=== PATIENT | female | born 1985 | race Caucasian/White ===

== ENCOUNTER → 2016-08-05 | Outpatient (CLI) | payer SELFPAY ==
[2016-08-05 11:34] LABS: CH 27.1; CHCM 33.1; HCT 37.4 % (34.0-46.0); HDW 2.94; HGB 12.4 gm/dL (11.4-16.0); MCH 27.3 pg (25.0-35.0); MCHC 33.3 g/dL (31.0-37.0); MCV 82.1 fL (80.0-100.0); Mean Platelet Volume 6.8; RBC 4.55 m/uL (3.80-5.40); RDW 13.9 % (11.5-15.5)
[2016-08-05 11:38] LABS: ALT 24 U/L (9-52); AST 15 U/L (14-36); Uric Acid 5.3 mg/dL (3.7-7.4)
[2016-08-05 12:07] LABS: Hepatitis B Surface Ag Index 0.05
[2016-08-05 13:12] LABS: Hemoglobin A1C 5.4 % (4.2-6.1)
[2016-08-06 07:46] LABS: HIV-1/HIV-2 Ab Screen NONREAC (NON REAC)
== END | disposition home or self-care (01) ==
LOC: LABWHC1 09:41
PROVIDERS: ATTEND Obstetrics & Gynecology
DX: O99.211 Obesity complicating pregnancy, first trimester (principal); Z3A.11 11 weeks gestation of pregnancy; Z86.32 Personal history of gestational diabetes
CPT/HCPCS: 36415; 81050; 82575; 82950; 83036; 84156; 84450; 84460; 84550; 85027; 86762; 86780; 86850; 86900; 86901; 87086; 87340; 87389

== ENCOUNTER → 2016-08-29 | Outpatient (CLI) | payer OTHER ==
[2016-08-29 12:38] LABS: Glucose 3 Hour, Gest 60 mg/dL
== END | disposition home or self-care (01) ==
LOC: LABWHC1 07:34
PROVIDERS: ATTEND Obstetrics & Gynecology
DX: O99.810 Abnormal glucose complicating pregnancy (principal)
CPT/HCPCS: 36415; 82951; 82952

== ENCOUNTER 2016-09-26 18:40 | Inpatient (IN) | payer OTHER ==
[2016-09-26 20:19] LABS: Basophils % (A) 0 %; CHCM 33.7; Eosinophils # (A) 0.1 k/uL (0-0.7); Eosinophils % (A) 1 %; HCT 34.7 % (34.0-46.0); HGB 11.7 gm/dL (11.4-16.0); Luc # (Auto) 0.13; Luc % (Auto) 2; Lymphocytes # (A) 1.8 k/uL (1.0-4.8); Lymphocytes % (A) 22 %; MCH 27.2 pg (25.0-35.0); MCHC 33.7 g/dL (31.0-37.0); MCV 80.7 fL (80.0-100.0); Mean Platelet Volume 6.7; Monocytes # (A) 0.3 k/uL (0-1.0); Monocytes % (A) 4 %; Neutrophils # (A) 5.8 k/uL (1.3-7.7); Neutrophils % (A) 72 %; RBC 4.31 m/uL (3.80-5.40); RDW 14.7 % (11.5-15.5); WBC 8.2 k/uL (3.8-10.6); WBC (Perox) 8.78
[2016-09-26 20:25] LABS: Appearance,Urine Clear (Clear); Bilirubin,Urine Negative (Negative); Glucose,Urine (UA) Negative (Negative); Ketones,Urine 1+ (Negative); Leukocyte Esterase,Urine Negative (Negative); Mucus,Urine Rare /hpf; Nitrite,Urine Negative (Negative); PH, Urine 6.5 (5.0-8.0); Particle Count 2709; Protein,Urine 2+ (Negative); RBC,Urine 5 /hpf (0-5); Specific Gravity,Urine 1.014 (1.001-1.035); Squamous Epithelial Cell,Urine 2 /hpf (0-4); UA Billing (MACRO vs. MICRO) MICRO; Urobilinogen,Urine <2.0 mg/dL (<2.0); WBC,Urine 3 /hpf (0-5)
--- NOTE | 2016-09-26 21:00 | US ---
EXAMINATION TYPE: US OB >= 14 wk fetus DATE OF EXAM: 09/26/2016 COMPARISON: None CLINICAL HISTORY: rupture of membranesLeaking fluid since last night TECHNIQUE: Transabdominal (TA) GESTATIONAL AGE / DATING Physician Established: (19 weeks/2 days) EDC: 02/18/17 Dates by LMP: unknown Dates by First Scan: no prior scan Dates by Current Scan: (19 weeks/2 days) EDC: 02/18/17 SURVEY IUP: Single PLACENTA: Posterior PREVIA: Low Lying MONIKA: 5.5 cm Oligohydramnios CERVICAL LENGTH (transabdominal: norm > 3.0cm): 2.7 cm BIOMETRY PRESENTATION: Breech LIE: Transverse with head maternal RT BPD: 4.2 cm 18 weeks / 5 days HC: 16.9 cm 19 weeks / 4 days AC: 15.2 cm 20 weeks / 3 days FL: 3.0 cm 19 weeks / 2 days ESTIMATED WEIGHT IN GRAMS: 313.9 grams ESTIMATED WEIGHT IN LBS/OZS: 0 lbs. 11 oz. WEIGHT PERCENTAGE BASED ON ESTABLISHED DATES: 75.7% HC/AC: 1.12 Normal FL/AC: 19.80 Normal HEART RATE: 161 bpm RHYTHM: Normal MATERNAL WALL MEASUREMENT: 4.8 cm from skin to anterior uterine wall (if exam limited due to body hab itus). Low amniotic fluid may limit sensitivity. IMPRESSION: Single viable IUP 19wks/2days with MARC of 02/18/17. Oligohydramnios. Low lying placenta. Limited feta l survey.
[2016-09-26 21:01] VITALS: BMI 43.0
[2016-09-26 21:38] LABS: Glucose,Whole Blood 82 mg/dL (75-99)
--- NOTE | 2016-09-26 21:44 | P.HPOB ---
History of Present Illness H&P Date: 09/26/16 Chief Complaint: 19+ weeks, premature spontaneous rupture of membranes The patient is a 31-year-old 2 para 1001 admitted at 19+ weeks by good dating parameters. She is admitted with documented spontaneous rupture of membranes which she believes she first noted late last night just prior to midnight. Her has been essentially uncomplicated to this point though she has been diagnosed with gestational diabetes. She has been following her blood sugars and reportedly relatively normal. She has a history of a previous section for breech presentation in her first which time she was also diabetic. She denies any risk factors for rupture of membranes and is not at risk for any infections to include STDs. She did have intercourse last night prior to rupture of membranes but has had no unusual activity of any kind. She reports only feeling fluttering movement at this time which is no different from the last several days. She denies any concerns for contractions or pain at this time. There is no bleeding. Bedside ultrasound demonstrated the fetus to be in a transverse presentation with approximately 5 cm total of fluid. The cervix appears to be of normal length transabdominally. There is no evidence of retroplacental clot or concerns for abruption though the placenta is apparently low-lying. Obstetrical history: 2 para 1001 with 1 term delivery for breech presentation. Current statistics are listed above and her is not available to me at the moment for labs. Gynecologic history: Unremarkable with no history of any infections to include STDs. Review of Systems Review of systems is confined to history of present illness. Past Medical History Past Medical History: GERD/Reflux Additional Past Medical History / Comment(s): gestational diabetes, obesity History of Any Multi-Drug Resistant Organisms: None Reported Past Surgical History: Section Past Anesthesia/Blood Transfusion Reactions: Motion Sickness Additional Past Anesthesia/Blood Transfusion Reaction / Comment(s): has never received anesthesia Past Psychological History: No Psychological Hx Reported Smoking Status: Never smoker Past Alcohol Use History: None Reported Past Drug Use History: None Reported - Past Family History Mother Family Medical History: No Reported History Medications and Allergies Home Medications Medication Instructions Recorded Confirmed Type Pnv with Ca,No.72/Iron/FA 1 each PO DAILY 06/20/14 09/26/16 History [ Plus Multivitamin Tab] Allergies Allergy/AdvReac Type Severity Reaction Status Date / Time No Known Allergies Allergy Verified 09/26/16 19:05 Exam - Vital Signs Vital signs: Vital Signs Temp Pulse Resp BP Pulse Ox 09/26/16 18:46 97.7 F 89 18 133/79 99 Intake and Output 09/26/16 09/26/16 09/26/16 06:59 14:59 22:59 Other: Weight 124.738 kg Patient Weight 09/27/16 06:59 Weight 124.738 kg In general, this is a moderately obese white female in no acute distress. Her heart has a regular rhythm and rate without murmur. Her lungs are clear to auscultation bilaterally in all napoles. Her abdomen is moderately obese, nondistended, has normal active bowel sounds, is soft, nontender, and without any palpable masses aside from uterine fundus which is at approximately the umbilicus. Her extremities are without any cyanosis, clubbing, or edema and are nontender to palpation bilaterally. Digital cervical examination is deferred. Spontaneous rupture of membranes of clear fluid is confirmed. Results Result Diagrams: 09/26/16 20:05 Abnormal Lab Results - Last 24 Hours (Table) 09/26/16 Range/Units 19:45 Urine Protein 2+ H (Negative) Urine Ketones 1+ H (Negative) Urine Blood Moderate H (Negative) Urine Mucus Rare H (None) /hpf Assessment and Plan (1) premature rupture of membranes (PPROM) delivered, current hospitalization Status: Acute (2) 19 weeks gestation of Status: Acute (3) Gestational diabetes Status: Acute Plan: The patient is admitted for observation at this time. I spent a long time discussing the serious nature of this condition and the strong possibility of a poor outcome for the infant. I did discuss that the most likely scenario is that labor may ensue and that the fetus is currently nonviable based upon gestational age. Should any evidence of labor or infection become apparent, the patient will require delivery. I did discuss that there is a place for conservative management if labor does not begin and no evidence of infection arises. This will require essential bed rest for the remainder of the . She will be observed here in the hospital for the next 72-96 hours. Should she remain stable, she may be discharged to be followed as an outpatient until she approaches viability. It is quite likely that a maternal- medicine consultation will be obtained in the outpatient setting in order to discuss all of the implications further and to make a plan as regards aggressive treatment should viability be approached. Those would include the possibility of steroids and prophylactic antibiotics which are not indicated at this time. While in the hospital, I will allow her a regular diet though she is a gestational diabetic and will require blood sugar monitoring. Additionally sequential compression devices have been ordered for her legs as she is to be kept at bedrest with bathroom privileges. She and her understood the gravity of the situation and I believe and agree with the plan as it has been outlined currently.
[2016-09-26] MEDS ORDERED: ACETAMINOPHEN TAB 325 MG TAB PO PRN (22:21)
[2016-09-27 00:31] LABS: Glucose,Whole Blood 116 mg/dL (75-99)
[2016-09-27 07:13] LABS: Basophils % (A) 0 %; CH 26.7; Eosinophils # (A) 0.1 k/uL (0-0.7); Eosinophils % (A) 1 %; HCT 33.6 % (34.0-46.0); HDW 3.08; HGB 10.8 gm/dL (11.4-16.0); Luc % (Auto) 1; Lymphocytes # (A) 1.6 k/uL (1.0-4.8); Lymphocytes % (A) 23 %; MCH 26.2 pg (25.0-35.0); MCHC 32.2 g/dL (31.0-37.0); MCV 81.6 fL (80.0-100.0); Mean Platelet Volume 6.9; Monocytes # (A) 0.3 k/uL (0-1.0); Monocytes % (A) 4 %; Neutrophils % (A) 71 %; RBC 4.12 m/uL (3.80-5.40); WBC (Perox) 7.46
[2016-09-27 07:47] LABS: Glucose,Whole Blood 89 mg/dL (75-99)
--- NOTE | 2016-09-27 09:03 | P.PN ---
Subjective Principal diagnosis: 19+ weeks, premature spontaneous rupture of membranes The patient denies any perceived leaking overnight and denies cramping, spotting , or any other signs of labor as well. There is no evidence of fever. She is feeling movement and heart tones are still in the normal range. She is tolerating regular diet. Objective - Vital Signs Vital signs: Vital Signs Temp 97.7 F 09/26/16 18:46 Pulse 89 09/26/16 18:46 Resp 18 09/26/16 18:46 BP 133/79 09/26/16 18:46 Pulse Ox 99 09/26/16 18:46 Intake & Output 09/26/16 09/27/16 09/27/16 18:59 06:59 18:59 Output Total 600 Balance -600 Weight 124.738 kg 124.738 kg Output: Urine 600 Other: # Voids 2 - Exam In general, this is a mild to moderately obese white female in no acute distress. Her abdomen is nondistended, is soft, nontender, and without any palpable masses aside from uterine fundus palpable just around the umbilicus. The fundus is soft and nontender. Her extremities are without any cyanosis, clubbing, or edema and are nontender to palpation bilaterally. - Labs CBC & Chem 7: 09/27/16 06:23 Labs: Abnormal Lab Results - Last 24 Hours (Table) 09/26/16 09/27/16 09/27/16 Range/Units 19:45 00:21 06:23 Hgb 10.8 L (11.4-16.0) gm/dL Hct 33.6 L (34.0-46.0) % POC Glucose (mg/dL) 116 H (75-99) mg/dL Urine Protein 2+ H (Negative) Urine Ketones 1+ H (Negative) Urine Blood Moderate H (Negative) Urine Mucus Rare H (None) /hpf Assessment and Plan (1) premature rupture of membranes (PPROM) delivered, current hospitalization Status: Acute (2) 19 weeks gestation of Status: Acute (3) Gestational diabetes Status: Acute Plan: At this time, there is no signs or symptoms of either infection or labor. Her white blood cell count is stable and actually lower than on admission. She remains afebrile. Her blood sugars are within the normal range to this point. She will continue to undergo observation for a total of 3-4 days to assess stability from all of these standpoints. Should she remain stable, she will likely be discharged to manage as an outpatient as outlined in the history and physical. The case was again rediscussed with the patient and her was present during the discussion as well. Both appeared to have a understanding of the scenario and concerns.
[2016-09-27 10:12] LABS: Glucose,Whole Blood 152 mg/dL (75-99)
[2016-09-27 11:57] LABS: Glucose,Whole Blood 80 mg/dL (75-99)
[2016-09-27 14:16] LABS: Glucose,Whole Blood 111 mg/dL (75-99)
[2016-09-27 17:37] LABS: Glucose,Whole Blood 86 mg/dL (75-99)
[2016-09-27 17:43] VITALS: BP 135/63; PULSE 83; RESP 16; TEMP 98.3
[2016-09-27 19:33] LABS: Glucose,Whole Blood 123 mg/dL (75-99)
[2016-09-27 23:12] LABS: Glucose,Whole Blood 80 mg/dL (75-99)
[2016-09-28 07:29] LABS: Glucose,Whole Blood 83 mg/dL (75-99)
[2016-09-28 09:35] LABS: Glucose,Whole Blood 100 mg/dL (75-99)
--- NOTE | 2016-09-28 09:52 | P.DS ---
Providers Date of admission: 09/26/16 19:48 Expected date of discharge: 09/28/16 Attending physician: Bayron Johns Primary care physician: Dhara Harrisonise - Discharge Diagnosis(es) (1) premature rupture of membranes (PPROM) delivered, current hospitalization Current Visit: Yes Status: Acute (2) 19 weeks gestation of Current Visit: Yes Status: Acute (3) Gestational diabetes Current Visit: Yes Status: Acute Hospital Course: The patient is a 31-year-old 2 para 1001 admitted at 19+ weeks by good dating parameters. She is admitted with documented spontaneous rupture of membranes of clear fluid which occurred approximately 12-18 hours prior to presentation at the hospital. Her has been essentially uncomplicated though she has been diagnosed with gestational diabetes. Her blood sugars have reportedly been relatively normal. She also carries a history of a previous section for breech presentation. Since the time of rupture of membranes, the patient denies any cramping whatsoever and has had no bleeding though does continue to have occasional leaking of fluid. She denies it for the last 12 hours. She has remained afebrile and her labs have remained stable with normal white count throughout. Blood sugars have remained essentially normal during her hospital stay. Her abdomen is soft and nontender. There continues to be activity with normal heart tones. She is in favor of conservative management at this point and the long-term plan as well as goals and possibility of success have been thoroughly discussed with both she and her . She was deemed stable for discharge on hospital day #3 and was discharged home to follow-up in the office tomorrow as previously scheduled for both ultrasound which was intended to be the anatomy scan and then further disposition. She will likely be sent for maternal medicine consultation in order to outline more detailed plans should she approach and reach viability. Discharge instructions included primarily remaining at essential bed rest with bathroom privileges. She was to call for any significantly increased fever, cramping or contractions, pain, or anything else that concerned her. She is instructed to have nothing in the vagina for the remainder of the to include intercourse. She understood all of her instructions and agrees to follow up as noted above. Discharge medications included only continue vitamins at this time. Procedures: #1. Obstetrical ultrasound #2. Observation Patient Condition at Discharge: Stable Plan - Discharge Summary Discharge Medication List Pnv with Ca,No.72/Iron/FA [ Plus Multivitamin Tab] 1 each PO DAILY 06/20 [History] Follow up Appointment(s)/Referral(s): Dhara Ferraro MD [Primary Care Provider] - 09/29/16 Discharge Disposition: HOME SELF-CARE
== END 2016-09-28 10:25 | disposition home or self-care (01) | DRG 775 ==
LOC: FBPOP 18:40 → 4FBP 19:48
PROVIDERS: ADMIT Obstetrics & Gynecology; ATTEND Obstetrics & Gynecology
DX: O42.912 Preterm premature rupture of membranes, unspecified as to length of time between rupture and onset of labor, second trimester (principal); O99.62 Diseases of the digestive system complicating childbirth; Z68.41 Body mass index [BMI] 40.0-44.9, adult; E66.9 Obesity, unspecified; O99.212 Obesity complicating pregnancy, second trimester; O24.410 Gestational diabetes mellitus in pregnancy, diet controlled; O34.211 Maternal care for low transverse scar from previous cesarean delivery; K21.9 Gastro-esophageal reflux disease without esophagitis; Z3A.19 19 weeks gestation of pregnancy; Z79.899 Other long term (current) drug therapy
CPT/HCPCS: 76805; 81001; 84112; 85025; 99213

== ENCOUNTER → 2016-09-29 | Outpatient (CLI) | payer OTHER ==
[2016-09-29 16:02] LABS: CH 26.8; CHCM 33.8; HCT 36.5 % (34.0-46.0); HDW 3.34; HGB 12.3 gm/dL (11.4-16.0); MCH 26.9 pg (25.0-35.0); MCHC 33.7 g/dL (31.0-37.0); MCV 79.9 fL (80.0-100.0); Mean Platelet Volume 6.6; RBC 4.57 m/uL (3.80-5.40); RDW 14.7 % (11.5-15.5); WBC 10.7 k/uL (3.8-10.6)
== END | disposition home or self-care (01) ==
LOC: LABWHC1 15:35
PROVIDERS: ATTEND Obstetrics & Gynecology
DX: O42.019 Preterm premature rupture of membranes, onset of labor within 24 hours of rupture, unspecified trimester (principal); Z3A.00 Weeks of gestation of pregnancy not specified
CPT/HCPCS: 36415; 85027

== ENCOUNTER → 2016-10-06 | Outpatient (CLI) | payer OTHER ==
[2016-10-06 15:19] LABS: CH 26.7; CHCM 34.1; HCT 34.4 % (34.0-46.0); HDW 3.34; HGB 11.9 gm/dL (11.4-16.0); MCH 27.3 pg (25.0-35.0); MCHC 34.7 g/dL (31.0-37.0); MCV 78.9 fL (80.0-100.0); Mean Platelet Volume 6.8; RBC 4.37 m/uL (3.80-5.40); RDW 14.6 % (11.5-15.5); WBC 7.4 k/uL (3.8-10.6)
== END | disposition home or self-care (01) ==
LOC: LABWHC1 14:50
PROVIDERS: ATTEND Obstetrics & Gynecology
DX: O42.912 Preterm premature rupture of membranes, unspecified as to length of time between rupture and onset of labor, second trimester (principal); Z3A.00 Weeks of gestation of pregnancy not specified
CPT/HCPCS: 36415; 85027

== ENCOUNTER 2016-10-07 09:26 | Observation (INO) | payer OTHER ==
[2016-10-07] MEDS: LACTATED RINGERS 1,000 ML IV SCH ×2 (10:05→18:35)
[2016-10-07 10:14] VITALS: BMI 39.9
[2016-10-07 10:24] LABS: Glucose,Whole Blood 80 mg/dL (75-99)
[2016-10-07 10:43] LABS: Basophils % (A) 0 %; CHCM 34.3; Eosinophils # (A) 0.1 k/uL (0-0.7); Eosinophils % (A) 1 %; HCT 33.3 % (34.0-46.0); HDW 3.34; HGB 11.4 gm/dL (11.4-16.0); Luc # (Auto) 0.14; Luc % (Auto) 2; Lymphocytes # (A) 1.4 k/uL (1.0-4.8); Lymphocytes % (A) 17 %; MCHC 34.2 g/dL (31.0-37.0); Mean Platelet Volume 6.8; Monocytes # (A) 0.3 k/uL (0-1.0); Monocytes % (A) 3 %; Neutrophils # (A) 6.3 k/uL (1.3-7.7); Neutrophils % (A) 77 %; RBC 4.22 m/uL (3.80-5.40); RDW 14.8 % (11.5-15.5); WBC 8.2 k/uL (3.8-10.6)
[2016-10-07 12:13] LABS: Glucose,Whole Blood 80 mg/dL (75-99)
--- NOTE | 2016-10-07 18:05 | P.HPOB ---
History of Present Illness H&P Date: 10/07/16 Chief Complaint: Vaginal bleeding This is a 31-year-old 2 para 1001 woman at 20-6/7 weeks' gestation with an estimated due date of 02/18/2017 who presents with vaginal bleeding. The has been complicated by spontaneous rupture of membranes at 19 weeks gestation. She was hospitalized for a short period of time immediately following rupture and has more recently been home on modified bed rest with close outpatient follow-up. She reports onset of bright red vaginal bleeding at approximately 8:30 this morning. This has continued intermittently until presentation later in the morning. She denies abdominal pain and is feeling movement. She reports no leakage of fluids in the previous 24 hours but prior to that she was actively leaking clear fluid. Ultrasound on 10/06/2016 showed an amniotic fluid index of approximately 4 cm and in the breech presentation. She has had maternal medicine consultation at [facility] regarding the situation. She also has gestational diabetes and mild chronic hypertension. She has a history of a previous low transverse section in her previous . Currently she is complaining of feeling very hungry. Her last meal was the before bed yesterday. Her admission blood sugar was 88. She thinks she may be having some mild lower abdominal cramping. She has had a couple of "gushes" of fluid and blood over the last 4 hours. She denies feeling lightheaded or dizzy. She denies shortness of breath or chest pain. Obstetric history significant for primary low transverse section in 2015 for breech presentation at 38 weeks. Should a history of gestational diabetes and -induced hypertension. Review of Systems All systems: negative Past Medical History Past Medical History: GERD/Reflux, Hypertension Additional Past Medical History / Comment(s): gestational diabetes, obesity History of Any Multi-Drug Resistant Organisms: None Reported Past Surgical History: Section Past Anesthesia/Blood Transfusion Reactions: Motion Sickness Additional Past Anesthesia/Blood Transfusion Reaction / Comment(s): has never received anesthesia Past Psychological History: No Psychological Hx Reported Smoking Status: Never smoker Past Alcohol Use History: None Reported Past Drug Use History: None Reported - Past Family History Mother Family Medical History: No Reported History Medications and Allergies Home Medications Medication Instructions Recorded Confirmed Type Pnv with Ca,No.72/Iron/FA 1 each PO DAILY 06/20/14 10/07/16 History [ Plus Multivitamin Tab] metFORMIN HCL [Metformin HCl] 500 mg PO BID 10/07/16 10/07/16 History Allergies Allergy/AdvReac Type Severity Reaction Status Date / Time No Known Allergies Allergy Verified 10/07/16 09:44 Exam - Vital Signs Vital signs: Vital Signs Temp Pulse Resp BP 10/07/16 10:04 97.8 F 96 16 143/95 10/07/16 09:58 97.8 F 96 16 143/95 Intake and Output 10/07/16 10/07/16 10/07/16 06:59 14:59 22:59 Other: Weight 115.666 kg Patient Weight 10/08/16 06:59 Weight 115.666 kg This is a somewhat tearful, obese female in no acute distress. HEENT exam is unremarkable. Her breathing is unlabored. Her heart is a regular rate and rhythm. The abdomen is obese, soft and nontender. The fundus of the uterus is below the level of the umbilicus and is nontender to palpation. She has 1+ bilateral lower extremity edema. On pelvic examination there is a scant amount of bright red bleeding noted. The cervix is approximately 1 cm long and fingertip dilated. There is a bulging low uterine segment with no presenting part. heart tones are audible at approximately 150 bpm. Results Result Diagrams: 10/07/16 10:25 Abnormal Lab Results - Last 24 Hours (Table) 10/07/16 Range/Units 10:25 Hct 33.3 L (34.0-46.0) % MCV 79.0 L (80.0-100.0) fL Assessment and Plan (1) 20 weeks gestation of Status: Acute (2) premature rupture of membranes Status: Acute (3) Vaginal bleeding Status: Acute (4) Threatened Status: Acute (5) Gestational diabetes Status: Acute (6) Chronic hypertension during , antepartum Status: Acute (7) History of Status: Acute Plan: This is a 31-year-old 2 para 1001 woman at 20-6/7 weeks' gestation with history of previous eye of viable premature rupture of membranes at 19 weeks gestation. She presents with vaginal bleeding. She is hemodynamically stable at this time. Situation concerning for placental abruption and or spontaneous labor. The situation has been discussed in detail and at length with the patient, the father of the baby and family members. The is previable at this gestational age and remote from viability. Transfer to a tertiary care facility is not warranted at this time for resuscitation purposes. Should her bleeding become more significant or she becomes hemodynamically unstable steps may be necessary to the speed the delivery process such as administration of vaginal Cytotec or IV Pitocin. At this time she will be managed conservatively and monitored closely. They understand the precarious nature of the situation. All questions are answered. Case is reviewed with Dr. Cheikh Haji from [facility], high risk group. He agrees with the above plan, specifically to proceed with induction of labor using Cytotec for a vaginal delivery should bleeding increase. Time with Patient: Greater than 30
[2016-10-07 19:26] LABS: CHCM 33.7; HDW 3.13; HGB 10.6 gm/dL (11.4-16.0); MCH 26.6 pg (25.0-35.0); MCV 80.5 fL (80.0-100.0); RBC 3.98 m/uL (3.80-5.40); WBC 7.6 k/uL (3.8-10.6)
[2016-10-07] MEDS: ACETAMINOPHEN TAB 325 MG TAB PO PRN (20:01)
[2016-10-07 20:15] LABS: Glucose,Whole Blood 134 mg/dL (75-99)
[2016-10-08] MEDS: LACTATED RINGERS 1,000 ML IV SCH (02:15)
[2016-10-08 02:30] LABS: Basophils % (A) 0 %; CH 27.1; CHCM 33.2; Eosinophils # (A) 0.1 k/uL (0-0.7); Eosinophils % (A) 1 %; HCT 34.5 % (34.0-46.0); HDW 3.16; HGB 11.4 gm/dL (11.4-16.0); Luc # (Auto) 0.11; Luc % (Auto) 2; Lymphocytes # (A) 2.1 k/uL (1.0-4.8); Lymphocytes % (A) 29 %; MCH 27.2 pg (25.0-35.0); MCHC 33.2 g/dL (31.0-37.0); Mean Platelet Volume 6.8; Monocytes # (A) 0.2 k/uL (0-1.0); Monocytes % (A) 3 %; Neutrophils # (A) 4.6 k/uL (1.3-7.7); Neutrophils % (A) 65 %; RBC 4.21 m/uL (3.80-5.40); WBC (Perox) 6.93
[2016-10-08] MEDS: ACETAMINOPHEN TAB 325 MG TAB PO PRN ×2 (04:10→20:26)
[2016-10-08 04:22] LABS: Glucose,Whole Blood 84 mg/dL (75-99)
--- NOTE | 2016-10-08 08:38 | P.PNOBGAP ---
Subjective - Subjective Principal diagnosis: Vaginal bleeding and previable premature rupture of membranes Interval history: Significantly decreased amount of bleeding overnight. Minimal abdominal cramping. Antepartum ROS: Reports vaginal bleeding, Reports movement normal, Denies new complaints, Denies loss of fluid Objective - Vital Signs Vital Signs: Vital Signs Temp Pulse Resp BP Pulse Ox 10/08/16 04:00 97.8 F 77 16 141/80 10/07/16 20:00 96.6 F L 81 15 136/81 97 10/07/16 16:00 97.2 F L 88 14 156/81 10/07/16 10:04 97.8 F 96 16 143/95 10/07/16 09:58 97.8 F 96 16 143/95 Intake and Output 10/07/16 10/08/16 10/08/16 22:59 06:59 14:59 Intake Total 1000 1000 Output Total 800 Balance 1000 200 Intake: IV 1000 1000 Lactated Ringers 1,000 ml 1000 1000 @ 125 mls/hr IV .Q8H LORIN Rx#:[id number] Output: Urine 800 Other: # Voids 1 - Exam FHR: auscultation normal Abdomen: Present: normal appearance, soft. Absent: tenderness Uterus: Present: normal. Absent: tenderness - Labs Labs: Abnormal Labs 10/07/16 10/07/16 10/07/16 10:25 19:00 20:06 Hgb 10.6 L Hct 33.3 L 32.0 L MCV 79.0 L POC Glucose (mg/dL) 134 H Assessment and Plan (1) 20 weeks gestation of Current Visit: Yes Status: Acute Code(s): Z3A.20 - 20 WEEKS GESTATION OF SNOMED Code(s): 97872327 (2) premature rupture of membranes Current Visit: Yes Status: Acute Code(s): O42.919 - PRETRM GIACOMO ROM, UNSP TIME BETW RUPT AND ONST LABR, UNSP TRI SNOMED Code(s): 442268487 (3) Vaginal bleeding Narrative/Plan: 31-year-old 2 para 1001 woman at 21 weeks gestation. Decreased amount of vaginal bleeding overnight. Normal white blood cell count and afebrile. Positive movement. Reviewed again the situation with the patient and her and all questions were answered. At this time they may be considering medical interruption of . We would consult the maternal medicine unit at [facility] for discussion of this and possible arrangements for procedure should they choose to proceed. At this time she remain inpatient for at least another 24 hours to observe for vaginal bleeding. Current Visit: Yes Status: Acute Code(s): N93.9 - ABNORMAL UTERINE AND VAGINAL BLEEDING, UNSPECIFIED SNOMED Code(s): 660334802 (4) Threatened Current Visit: Yes Status: Acute Code(s): O20.0 - THREATENED SNOMED Code(s): 00130421 (5) Gestational diabetes Narrative/Plan: Resume regular diet with metformin twice a day. Current Visit: Yes Status: Acute Code(s): O24.419 - GESTATIONAL DIABETES MELLITUS IN , UNSP CONTROL SNOMED Code(s): 57631463 (6) Chronic hypertension during , antepartum Current Visit: Yes Status: Acute Code(s): O10.919 - UNSP PRE-EXISTING HTN COMP , UNSP TRIMESTER SNOMED Code(s): 68273434 (7) History of Current Visit: Yes Status: Acute Code(s): Z98.891 - HISTORY OF UTERINE SCAR FROM PREVIOUS SURGERY SNOMED Code(s): 244479830
[2016-10-08] MEDS: metFORMIN 500 MG TAB PO SCH ×2 (10:50→23:41)
[2016-10-08 11:03] LABS: Basophils % (A) 0 %; CH 26.8; CHCM 32.9; Eosinophils # (A) 0.1 k/uL (0-0.7); Eosinophils % (A) 1 %; HGB 11.1 gm/dL (11.4-16.0); Luc # (Auto) 0.05; Luc % (Auto) 1; Lymphocytes # (A) 1.1 k/uL (1.0-4.8); Lymphocytes % (A) 18 %; MCH 26.8 pg (25.0-35.0); MCHC 32.7 g/dL (31.0-37.0); MCV 81.7 fL (80.0-100.0); Mean Platelet Volume 6.9; Monocytes # (A) 0.1 k/uL (0-1.0); Monocytes % (A) 2 %; Neutrophils # (A) 4.7 k/uL (1.3-7.7); Neutrophils % (A) 78 %; RBC 4.16 m/uL (3.80-5.40); WBC (Perox) 6.89
[2016-10-08 12:04] LABS: Glucose,Whole Blood 76 mg/dL (75-99)
[2016-10-08 15:40] LABS: Glucose,Whole Blood 97 mg/dL (75-99)
[2016-10-08 18:11] LABS: Basophils % (A) 0 %; CH 26.9; CHCM 32.4; Eosinophils # (A) 0.1 k/uL (0-0.7); Eosinophils % (A) 1 %; HCT 34.7 % (34.0-46.0); HDW 3.09; HGB 11.2 gm/dL (11.4-16.0); Hypochromasia Slight; Luc % (Auto) 1; Lymphocytes # (A) 1.8 k/uL (1.0-4.8); Lymphocytes % (A) 23 %; MCHC 32.4 g/dL (31.0-37.0); MCV 83.3 fL (80.0-100.0); Mean Platelet Volume 6.7; Monocytes # (A) 0.2 k/uL (0-1.0); Monocytes % (A) 3 %; Neutrophils # (A) 5.5 k/uL (1.3-7.7); Neutrophils % (A) 71 %; RBC 4.16 m/uL (3.80-5.40); RDW 14.9 % (11.5-15.5); WBC 7.7 k/uL (3.8-10.6); WBC (Perox) 8.02
[2016-10-08 20:16] LABS: Glucose,Whole Blood 90 mg/dL (75-99)
[2016-10-09 02:34] LABS: Basophils % (A) 0 %; CH 26.7; CHCM 32.9; Eosinophils # (A) 0.1 k/uL (0-0.7); Eosinophils % (A) 1 %; HCT 32.6 % (34.0-46.0); HDW 3.16; HGB 10.9 gm/dL (11.4-16.0); Luc % (Auto) 1; Lymphocytes # (A) 1.8 k/uL (1.0-4.8); Lymphocytes % (A) 26 %; MCH 27.4 pg (25.0-35.0); MCHC 33.5 g/dL (31.0-37.0); MCV 81.6 fL (80.0-100.0); Mean Platelet Volume 6.7; Monocytes # (A) 0.3 k/uL (0-1.0); Monocytes % (A) 4 %; Neutrophils # (A) 4.7 k/uL (1.3-7.7); Neutrophils % (A) 67 %; RBC 3.99 m/uL (3.80-5.40); RDW 14.9 % (11.5-15.5); WBC (Perox) 7.22
[2016-10-09] MEDS: metFORMIN 500 MG TAB PO SCH (08:39)
[2016-10-09 08:42] VITALS: BP 136/69; PULSE 65; RESP 16; TEMP 97.5
[2016-10-09 08:44] LABS: Glucose,Whole Blood 85 mg/dL (75-99)
--- NOTE | 2016-10-09 10:34 | P.DS ---
Providers Date of admission: 10/07/16 09:57 Expected date of discharge: 10/09/16 Attending physician: Dhara Ferraro Primary care physician: Stated None - Discharge Diagnosis(es) (1) 20 weeks gestation of Current Visit: Yes Status: Acute (2) premature rupture of membranes Current Visit: Yes Status: Acute (3) Vaginal bleeding Current Visit: Yes Status: Acute (4) Threatened Current Visit: Yes Status: Acute (5) Gestational diabetes Current Visit: Yes Status: Acute (6) Chronic hypertension during , antepartum Current Visit: Yes Status: Acute (7) History of Current Visit: Yes Status: Acute Hospital Course: This is a 31-year-old 2 para 1001 woman who was admitted at 20-6/7 weeks ' gestation with vaginal bleeding. Her obstetrical history is significant for previable premature rupture of membranes at approximately 19 weeks gestation. She had onset of moderate to heavy bright red vaginal bleeding which brought her to the hospital. She was hemodynamically stable however was admitted for observation secondary to concerns for possible placental abruption or impending miscarriage. She has had positive heart tones throughout her stay. Serial CBC were stable. After approximately the first 12 hours of her admission her bleeding essentially stopped. She had very scant bright red bleeding on the pad throughout her hospital stay following this. She was therefore discharged home after approximate 48 hours of monitoring to close follow-up in the outpatient setting. Plan - Discharge Summary New Discharge Prescriptions: No Action Pnv with Ca,No.72/Iron/FA [ Plus Multivitamin Tab] 1 each PO DAILY metFORMIN HCL [Metformin HCl] 500 mg PO BID Discharge Medication List Pnv with Ca,No.72/Iron/FA [ Plus Multivitamin Tab] 1 each PO DAILY 06/20 [History] metFORMIN HCL [Metformin HCl] 500 mg PO BID 10/07/16 [History] Follow up Appointment(s)/Referral(s): Dhara Ferraro MD [STAFF PHYSICIAN] - 10/13/16 Activity/Diet/Wound Care/Special Instructions: Home to limited activities. Nothing in the vagina, no intercourse. Call the office with any concerning signs or symptoms including fever greater than 100.5 , absent movement, severe abdominal pain or cramping, foul vaginal discharge or vaginal bleeding. Return to labor and delivery with any flow of bright red vaginal bleeding, more than one maxi pad in an hour. Discharge Disposition: HOME SELF-CARE
[2016-10-09 11:01] LABS: Glucose,Whole Blood 94 mg/dL (75-99)
== END 2016-10-09 12:05 | disposition home or self-care (01) ==
LOC: FBPOP 09:26 → 4FBP 09:57
PROVIDERS: ADMIT Obstetrics & Gynecology; ATTEND Obstetrics & Gynecology
DX: O20.0 Threatened abortion (principal); Z3A.21 21 weeks gestation of pregnancy; O42.912 Preterm premature rupture of membranes, unspecified as to length of time between rupture and onset of labor, second trimester; O16.2 Unspecified maternal hypertension, second trimester; O34.211 Maternal care for low transverse scar from previous cesarean delivery; O24.415 Gestational diabetes mellitus in pregnancy, controlled by oral hypoglycemic drugs; Z79.84 Long term (current) use of oral hypoglycemic drugs
CPT/HCPCS: 99213; 86900; 86901; 85025 ×3; 85027; 86850; G0378 ×3

== ENCOUNTER → 2016-10-15 | Outpatient (CLI) | payer OTHER ==
[2016-10-15 15:59] LABS: CH 27.2; CHCM 34.4; HCT 33.3 % (34.0-46.0); HDW 3.39; HGB 11.8 gm/dL (11.4-16.0); MCH 28.1 pg (25.0-35.0); MCHC 35.4 g/dL (31.0-37.0); MCV 79.4 fL (80.0-100.0); Mean Platelet Volume 7.5; RBC 4.19 m/uL (3.80-5.40); RDW 15.2 % (11.5-15.5); WBC 9.4 k/uL (3.8-10.6)
== END | disposition home or self-care (01) ==
LOC: LABWHC1 15:22
PROVIDERS: ATTEND Obstetrics & Gynecology
DX: O24.419 Gestational diabetes mellitus in pregnancy, unspecified control (principal); O42.90 Premature rupture of membranes, unspecified as to length of time between rupture and onset of labor, unspecified weeks of gestation; Z3A.00 Weeks of gestation of pregnancy not specified
CPT/HCPCS: 36415; 85027

== ENCOUNTER → 2016-12-01 | Outpatient (CLI) | payer OTHER ==
--- NOTE | 2016-12-01 16:27 | MR ---
EXAMINATION TYPE: MR liver wo/w con DATE OF EXAM: 12/01/2016 COMPARISON: Correlation outside CT report dated 11/29/2016. Measurements for the left liver lesion wer e 12.6 x 9.0 x 12.7 cm. HISTORY: 31-year-old female seen for kidney stone/infection, incidental cyst seen on liver, liver mas s. Technique: Multiplanar, multisequence images of the abdomen were obtained before and after administra tion of 20 mL intravenous MultiHance gadolinium contrast. FINDINGS: Heart is normal size without pericardial effusion. Redemonstrated large multilocular cystic mass within the left hepatic lobe that shows typical high T2 and low T1 signal. This measures 11.7 cm wide by 8.7 cm AP by 14.3 cm craniocaudal, similar given so me differences in measurement technique. Again, this stretches the inferior aspect of the left liver capsule and has mass effect onto the champ cent lesser curvature of the stomach. There are thin internal septations and while there may be a couple 1 cm areas of nodularity along tanya e of the septations, T2 axial image 31 and 35, no discrete enhancement is seen. There appears to be trace perihepatic ascites anteriorly along the left liver lobe. The liver itself is enlarged measuring 24.1 cm craniocaudal. The hepatic veins and portal venous system are patent though there is mass effect with extrinsic comp ression on the left portal vein. Gallbladder, adrenal glands, and pancreas as well as the left kidney appear within normal limits. The re are striated and wedge-shaped areas of nonenhancement within the right kidney which appears asymme trically larger and is heterogeneous in signal on T2-weighted sequence. Perinephric edema is present with apparent mild fluid within the lesser sac. No upper abdominal lymphadenopathy or gross bowel abnormality seen. IMPRESSION: 1. Large multilocular cystic mass measuring 14.3 cm within the left liver lobe. This stretches the in ferior left liver capsule, has mass effect onto the lesser curvature of the stomach, and has extrinsi c partial compression of the left portal vein. Multiple thin internal septations are present with a c ouple 1 cm areas of internal nodularity. Given the appearance along with patient demographics, biliar y cystadenoma is not excluded from the differential. Note that there are no specific imaging features that permit reliable differentiation from biliary cyst adenocarcinomas. 2. Enlarged and edematous right kidney with perinephric edema. There are wedge-shaped/striated areas of hypoenhancement. This could be reactive to obstruction or indicate pyelonephritis. 3. Mild ascites fluid collecting in the lesser sac and trace fluid around the liver likely secondary to inflammation from the right kidney. 4. Hepatosplenomegaly. Clinically correlate.
== END | disposition home or self-care (01) ==
LOC: RADMRIMAIN 14:13
PROVIDERS: ATTEND Family Medicine
DX: K83.5 Biliary cyst (principal); R16.2 Hepatomegaly with splenomegaly, not elsewhere classified; K31.9 Disease of stomach and duodenum, unspecified; K76.89 Other specified diseases of liver; I87.1 Compression of vein; N28.81 Hypertrophy of kidney; N28.89 Other specified disorders of kidney and ureter; R18.8 Other ascites
CPT/HCPCS: 74183; A9577

== ENCOUNTER 2016-12-02 21:10 | Emergency (ER) | payer OTHER ==
[2016-12-02 21:39] VITALS: TEMP 100.8
[2016-12-02 22:05] LABS: Appearance,Urine Cloudy (Clear); Bilirubin,Urine Negative (Negative); Glucose,Urine (UA) Negative (Negative); Ketones,Urine Negative (Negative); Leukocyte Esterase,Urine Large (Negative); Nitrite,Urine Negative (Negative); Particle Count 5213; Protein,Urine 1+ (Negative); RBC,Urine >182 /hpf (0-5); Specific Gravity,Urine 1.016 (1.001-1.035); Squamous Epithelial Cell,Urine 7 /hpf (0-4); UA Billing (MACRO vs. MICRO) MICRO
[2016-12-02] MEDS ORDERED: LEVOFLOXACIN 750MG-D5W PMX 750 MG in DEXTROSE/WATER 1 150ML.BAG IVPB STA (22:16)
[2016-12-02] MEDS ORDERED: MORPHINE SULFATE 4 MG/ML SYRINGE IV STA (22:19)
--- NOTE | 2016-12-02 22:19 | ED ---
Abdominal Pain HPI - General Chief Complaint: Abdominal Pain Stated Complaint: Right side pain Time Seen by Provider: 12/02/16 21:47 Source: patient Mode of arrival: ambulatory Limitations: no limitations - History of Present Illness Initial Comments: This patient is a 31-year-old woman who presents with the complaint that her right flank pain has intensified today. This has been going on since Wednesday of last week. She states it started in the right flank it does occasionally radiate around to the right abdomen. The pain is aching. It was initially intermittent but has been constant. There is some occasional nausea. She has not noted worsening or relieving factors. The patient states that on Wednesday she had [facility] and she had a computed tomography scan that showed a right-sided kidney stone and possibility of pyelonephrosis. She was given fluids she had antibiotics and she was discharged. She follow-up with her physician on Wednesday and he scheduled her to have an MRI because of an incidental liver finding at the previous hospital visit. The patient states that when she had the MRI today she developed increasing right flank pain. MD Complaint: flank pain Onset/Timin -: days(s) Location: R flank Radiation: none Migration to: no migration Severity: severe Quality: aching Consistency: constant Improves With: nothing Worsens With: nothing Associated Symptoms: nausea - Related Data Home Medications Medication Instructions Recorded Confirmed Ciprofloxacin HCl [Cipro] 500 mg PO Q12HR 12/02/16 12/02/16 HYDROcodone/APAP 5-325MG [[place] 1 tab PO Q6HR PRN 12/02/16 12/02/16 5-325] Ondansetron [Zofran ODT] 4 mg PO Q12HR PRN 12/02/16 12/02/16 Previous Rx's Medication Instructions Recorded Tamsulosin [Flomax] 0.4 mg PO DAILY #14 cap 12/03/16 Allergies Allergy/AdvReac Type Severity Reaction Status Date / Time No Known Allergies Allergy Verified 12/02/16 21:39 Review of Systems ROS Statement: Those systems with pertinent positive or pertinent negative responses have been documented in the HPI. ROS Other: All systems not noted in ROS Statement are negative. Constitutional: Reports: chills, weakness. Denies: fever Respiratory: Denies: cough, dyspnea, wheezes Cardiovascular: Denies: chest pain, palpitations, edema, syncope Gastrointestinal: Reports: as per HPI, abdominal pain, nausea. Denies: vomiting , diarrhea, constipation, melena, hematochezia Genitourinary: Reports: hematuria. Denies: dysuria, frequency Musculoskeletal: Denies: back pain Skin: Denies: rash Neurological: Denies: headache, weakness, numbness Past Medical History Past Medical History: GERD/Reflux, Hypertension Additional Past Medical History / Comment(s): gestational diabetes, obesity History of Any Multi-Drug Resistant Organisms: None Reported Past Surgical History: Section Additional Past Surgical History / Comment(s): c-sect x 2 last baby 11/13/2016 Past Anesthesia/Blood Transfusion Reactions: Motion Sickness Additional Past Anesthesia/Blood Transfusion Reaction / Comment(s): has never received anesthesia Past Psychological History: No Psychological Hx Reported Smoking Status: Never smoker Past Alcohol Use History: None Reported Past Drug Use History: None Reported - Past Family History Mother Family Medical History: No Reported History General Exam Limitations: no limitations General appearance: alert, in no apparent distress Head exam: Present: atraumatic, normocephalic Eye exam: Present: normal appearance. Absent: scleral icterus, conjunctival injection ENT exam: Present: normal oropharynx Neck exam: Present: normal inspection, full ROM Respiratory exam: Present: normal lung sounds bilaterally. Absent: respiratory distress, wheezes, rales, rhonchi, stridor Cardiovascular Exam: Present: regular rate, normal rhythm, normal heart sounds GI/Abdominal exam: Present: soft. Absent: distended, tenderness, guarding, rebound, rigid, mass, pulsatile mass, hernia Extremities exam: Present: normal inspection, normal capillary refill. Absent: pedal edema, calf tenderness Back exam: Present: normal inspection, CVA tenderness (R). Absent: CVA tenderness (L) Neurological exam: Present: alert Skin exam: Present: warm, dry, intact, normal color. Absent: rash Course Vital Signs 12/02/16 12/02/16 12/03/16 21:34 23:02 00:09 Temperature 100.8 F H Pulse Rate 96 97 91 Respiratory 18 16 16 Rate Blood Pressure 124/82 125/77 134/68 O2 Sat by Pulse 99 96 99 Oximetry 12/03/16 12/03/16 01:23 02:05 Temperature Pulse Rate 105 H 68 Respiratory 20 16 Rate Blood Pressure 142/90 136/72 O2 Sat by Pulse 99 Oximetry Medical Decision Making - Medical Decision Making This patient is a 31-year-old woman presenting with kidney stone. I had reviewed her labs and imaging from [facility] and had anticipated keep the patient as when she was there she had significant leukocytosis. Here her labs do show much improvement. The leukocytosis has resolved and there are no longer any white cells in the urine. She does have significant improvement in the symptoms following medication and we discussed admission versus outpatient follow-up, and given everything that she has going on at the moment she would prefer to follow up as an outpatient. She does see seems stable for this at the moment we discussed return parameters and the appropriate further care. - Lab Data Result diagrams: 12/02/16 22:55 12/02/16 22:55 Lab Results 12/02/16 12/02/16 12/02/16 Range/Units 21:42 21:42 22:55 WBC 4.8 (3.8-10.6) k/uL RBC 3.43 L (3.80-5.40) m/uL Hgb 8.7 L D (11.4-16.0) gm/dL Hct 27.6 L (34.0-46.0) % MCV 80.4 (80.0-100.0) fL MCH 25.3 (25.0-35.0) pg MCHC 31.4 (31.0-37.0) g/dL RDW 15.8 H (11.5-15.5) % Plt Count 215 (150-450) k/uL Neutrophils % 77 % Lymphocytes % 13 % Monocytes % 6 % Eosinophils % 1 % Basophils % 0 % Neutrophils # 3.7 (1.3-7.7) k/uL Lymphocytes # 0.6 L (1.0-4.8) k/uL Monocytes # 0.3 (0-1.0) k/uL Eosinophils # 0.1 (0-0.7) k/uL Basophils # 0.0 (0-0.2) k/uL Hypochromasia Moderate Poikilocytosis Slight PT (9.0-12.0) sec INR (<1.2) APTT (22.0-30.0) sec Sodium (137-145) mmol/L Potassium (3.5-5.1) mmol/L Chloride (98-107) mmol/L Carbon Dioxide (22-30) mmol/L Anion Gap mmol/L BUN (7-17) mg/dL Creatinine (0.52-1.04) mg/dL Est GFR (MDRD) Af Amer (>60 ml/min/1.73 sqM) Est GFR (MDRD) Non-Af (>60 ml/min/1.73 sqM) Glucose (74-99) mg/dL Plasma Lactic Acid [place] (0.7-2.0) mmol/L Calcium (8.4-10.2) mg/dL Total Bilirubin (0.2-1.3) mg/dL AST (14-36) U/L ALT (9-52) U/L Alkaline Phosphatase (38-126) U/L Total Protein (6.3-8.2) g/dL Albumin (3.5-5.0) g/dL Urine Color Yellow Urine Appearance Cloudy H (Clear) Urine pH 6.0 (5.0-8.0) Ur Specific [place] 1.016 (1.001-1.035) Urine Protein 1+ H (Negative) Urine Glucose (UA) Negative (Negative) Urine Ketones Negative (Negative) Urine Blood Moderate H (Negative) Urine Nitrite Negative (Negative) Urine Bilirubin Negative (Negative) Urine Urobilinogen 2.0 (<2.0) mg/dL Ur Leukocyte Esterase Large H (Negative) Urine RBC >182 H (0-5) /hpf Ur Squamous Epith Cells 7 H (0-4) /hpf Urine HCG, Qual Not Detected (Not Detectd) 12/02/16 12/02/16 12/02/16 Range/Units 22:55 22:55 22:55 WBC (3.8-10.6) k/uL RBC (3.80-5.40) m/uL Hgb (11.4-16.0) gm/dL Hct (34.0-46.0) % MCV (80.0-100.0) fL MCH (25.0-35.0) pg MCHC (31.0-37.0) g/dL RDW (11.5-15.5) % Plt Count (150-450) k/uL Neutrophils % % Lymphocytes % % Monocytes % % Eosinophils % % Basophils % % Neutrophils # (1.3-7.7) k/uL Lymphocytes # (1.0-4.8) k/uL Monocytes # (0-1.0) k/uL Eosinophils # (0-0.7) k/uL Basophils # (0-0.2) k/uL Hypochromasia Poikilocytosis PT 11.4 (9.0-12.0) sec INR 1.1 (<1.2) APTT 22.5 (22.0-30.0) sec Sodium 140 (137-145) mmol/L Potassium 3.5 (3.5-5.1) mmol/L Chloride 105 (98-107) mmol/L Carbon Dioxide 23 (22-30) mmol/L Anion Gap 12 mmol/L BUN 18 H (7-17) mg/dL Creatinine 0.90 (0.52-1.04) mg/dL Est GFR (MDRD) Af Amer >60 (>60 ml/min/1.73 sqM) Est GFR (MDRD) Non-Af >60 (>60 ml/min/1.73 sqM) Glucose 100 H (74-99) mg/dL Plasma Lactic Acid [place] 1.2 (0.7-2.0) mmol/L Calcium 8.6 (8.4-10.2) mg/dL Total Bilirubin 0.3 (0.2-1.3) mg/dL AST 44 H (14-36) U/L ALT 62 H (9-52) U/L Alkaline Phosphatase 140 H (38-126) U/L Total Protein 5.7 L (6.3-8.2) g/dL Albumin 2.8 L (3.5-5.0) g/dL Urine Color Urine Appearance (Clear) Urine pH (5.0-8.0) Ur Specific [place] (1.001-1.035) Urine Protein (Negative) Urine Glucose (UA) (Negative) Urine Ketones (Negative) Urine Blood (Negative) Urine Nitrite (Negative) Urine Bilirubin (Negative) Urine Urobilinogen (<2.0) mg/dL Ur Leukocyte Esterase (Negative) Urine RBC (0-5) /hpf Ur Squamous Epith Cells (0-4) /hpf Urine HCG, Qual (Not Detectd) - EKG Data -: EKG Interpreted by [facility] EKG shows normal: sinus rhythm, axis (Normal), intervals (Normal), QRS complexes (Normal), ST-T waves (Normal) Rate: normal (Rate 90 bpm) Disposition Clinical Impression: Calculus of kidney Disposition: HOME SELF-CARE Condition: Fair Instructions: Kidney Stones (ED) Prescriptions: Tamsulosin [Flomax] 0.4 mg PO DAILY #14 cap Referrals: Ld Brock DO [Primary Care Provider] - 1-2 days Cayetano Moran MD [STAFF PHYSICIAN] - 1-2 days
[2016-12-02] MEDS: SODIUM CHLORIDE 0.9% 500 ML IV SCH ×2 (22:57→23:27)
[2016-12-02 23:12] LABS: Basophils % (A) 0 %; CH 25.6; CHCM 31.9; Eosinophils # (A) 0.1 k/uL (0-0.7); Eosinophils % (A) 1 %; HCT 27.6 % (34.0-46.0); HDW 3.54; Hypochromasia Moderate; Luc # (Auto) 0.14; Luc % (Auto) 3; Lymphocytes # (A) 0.6 k/uL (1.0-4.8); Lymphocytes % (A) 13 %; MCH 25.3 pg (25.0-35.0); MCHC 31.4 g/dL (31.0-37.0); MCV 80.4 fL (80.0-100.0); Mean Platelet Volume 7.4; Monocytes # (A) 0.3 k/uL (0-1.0); Monocytes % (A) 6 %; Neutrophils # (A) 3.7 k/uL (1.3-7.7); Neutrophils % (A) 77 %; Poikilocytosis Slight; RBC 3.43 m/uL (3.80-5.40); RDW 15.8 % (11.5-15.5); WBC 4.8 k/uL (3.8-10.6); WBC (Perox) 5.42
[2016-12-02 23:14] LABS: HGB 8.7 gm/dL (11.4-16.0)
[2016-12-02 23:20] LABS: INR 1.1 (<1.2); Partial Thromboplastin Time 22.5 sec (22.0-30.0); Prothrombin Time 11.4 sec (9.0-12.0)
[2016-12-02 23:21] LABS: ALT 62 U/L (9-52); AST 44 U/L (14-36); Alkaline Phosphatase 140 U/L (38-126); Anion Gap 12 mmol/L; Blood Urea Nitrogen 18 mg/dL (7-17); Calcium 8.6 mg/dL (8.4-10.2); Carbon Dioxide 23 mmol/L (22-30); Chloride 105 mmol/L (98-107); Glucose 100 mg/dL (74-99); Non-African American GFR(MDRD) >60 (>60 ml/min/1.73 sqM); Potassium 3.5 mmol/L (3.5-5.1); Sodium 140 mmol/L (137-145); Total Bilirubin 0.3 mg/dL (0.2-1.3); Total Protein 5.7 g/dL (6.3-8.2)
[2016-12-03] MEDS ORDERED: MORPHINE SULFATE 4 MG/ML SYRINGE IV STA (00:02)
[2016-12-03] MEDS ORDERED: SODIUM CHLORIDE 0.9% 1,000 ML IV ONE ×2 (00:02→01:09)
[2016-12-03] MEDS ORDERED: HYDROmorphone 1 MG/ML 1 ML SYRINGE IVP STA (01:12)
[2016-12-03] MEDS ORDERED: TAMSULOSIN 0.4 MG CAP.ER.24H PO STA (01:55)
[2016-12-03 02:06] VITALS: BP 136/72; PULSE 68; RESP 16
== END 2016-12-03 02:23 | disposition home or self-care (01) ==
LOC: EC 21:10
DX: O99.89 Other specified diseases and conditions complicating pregnancy, childbirth and the puerperium (principal); N20.0 Calculus of kidney; O99.215 Obesity complicating the puerperium; E66.9 Obesity, unspecified; Z68.37 Body mass index [BMI] 37.0-37.9, adult
CPT/HCPCS: 36415; 93005; 80053; 83605; 85025; 85610; 85730; 81001; 81025; 87040; 99284; 96365; 96366 ×2; 96375 ×2; 96376; 96361; J2270 ×2; J1170; J1956

== ENCOUNTER → 2017-01-14 | Outpatient (CLI) | payer OTHER ==
[2017-01-14 11:59] LABS: EKG EKG PERFORMED
--- NOTE | 2017-01-14 12:00 | XR ---
EXAMINATION TYPE: XR chest 2V DATE OF EXAM: 01/14/2017 CLINICAL HISTORY: Z01.818 pre op TECHNIQUE: Frontal and lateral views of the chest are obtained. COMPARISON: None FINDINGS: There is no focal air space opacity, pleural effusion, or pneumothorax seen. The cardiac silhouette size is within normal limits. The osseous structures are intact. IMPRESSION: No acute cardiopulmonary process.
[2017-01-14 12:36] LABS: Anisocytosis Slight; Basophils % (A) 0 %; CH 22.9; CHCM 30.5; Eosinophils # (A) 0.1 k/uL (0-0.7); Eosinophils % (A) 1 %; HCT 29.9 % (34.0-46.0); HDW 4.03; HGB 9.3 gm/dL (11.4-16.0); Hypochromasia Marked; Luc # (Auto) 0.13; Luc % (Auto) 2; Lymphocytes # (A) 1.8 k/uL (1.0-4.8); Lymphocytes % (A) 26 %; MCH 23.5 pg (25.0-35.0); MCHC 31.1 g/dL (31.0-37.0); MCV 75.6 fL (80.0-100.0); Mean Platelet Volume 6.1; Microcytosis Slight; Monocytes # (A) 0.2 k/uL (0-1.0); Monocytes % (A) 4 %; Neutrophils # (A) 4.6 k/uL (1.3-7.7); Neutrophils % (A) 67 %; Poikilocytosis Moderate; RBC 3.96 m/uL (3.80-5.40); RDW 17.9 % (11.5-15.5); WBC 6.9 k/uL (3.8-10.6); WBC (Perox) 7.31
[2017-01-14 12:47] LABS: INR 1.1 (<1.2); Prothrombin Time 10.8 sec (9.0-12.0)
[2017-01-14 13:08] LABS: ALT 37 U/L (9-52); AST 20 U/L (14-36); Alkaline Phosphatase 91 U/L (38-126); Anion Gap 12 mmol/L; Blood Urea Nitrogen 14 mg/dL (7-17); Calcium 9.9 mg/dL (8.4-10.2); Carbon Dioxide 23 mmol/L (22-30); Chloride 105 mmol/L (98-107); Glucose 108 mg/dL (74-99); Non-African American GFR(MDRD) >60 (>60 ml/min/1.73 sqM); Potassium 4.3 mmol/L (3.5-5.1); Sodium 140 mmol/L (137-145); Total Bilirubin 0.4 mg/dL (0.2-1.3)
== END | disposition home or self-care (01) ==
LOC: RADXRMAIN 11:19
PROVIDERS: ATTEND Transplant Surgery
DX: Z01.818 Encounter for other preprocedural examination (principal); K76.89 Other specified diseases of liver; Z01.812 Encounter for preprocedural laboratory examination
CPT/HCPCS: 36415; 71020; 80053; 85025; 85610; 86301; 93005

== ENCOUNTER → 2017-02-23 | Outpatient (CLI) | payer OTHER ==
[2017-02-23 16:33] LABS: Anisocytosis Slight; Basophils # (A) 0.1 k/uL (0-0.2); Basophils % (A) 1 %; CH 22.9; CHCM 30.1; Eosinophils # (A) 0.2 k/uL (0-0.7); Eosinophils % (A) 3 %; HCT 33.9 % (34.0-46.0); HDW 3.58; HGB 10.5 gm/dL (11.4-16.0); Hypochromasia Marked; Luc # (Auto) 0.07; Luc % (Auto) 1; Lymphocytes # (A) 2.3 k/uL (1.0-4.8); Lymphocytes % (A) 31 %; MCH 23.6 pg (25.0-35.0); MCV 76.2 fL (80.0-100.0); Microcytosis Slight; Monocytes # (A) 0.3 k/uL (0-1.0); Monocytes % (A) 3 %; Neutrophils # (A) 4.4 k/uL (1.3-7.7); Neutrophils % (A) 60 %; Poikilocytosis Slight; RBC 4.45 m/uL (3.80-5.40); WBC 7.3 k/uL (3.8-10.6); WBC (Perox) 7.58
[2017-02-23 16:51] LABS: ALT 34 U/L (9-52); AST 18 U/L (14-36); Alkaline Phosphatase 69 U/L (38-126); Anion Gap 14 mmol/L; Blood Urea Nitrogen 15 mg/dL (7-17); Calcium 9.8 mg/dL (8.4-10.2); Carbon Dioxide 22 mmol/L (22-30); Chloride 106 mmol/L (98-107); Glucose 97 mg/dL (74-99); Non-African American GFR(MDRD) >60 (>60 ml/min/1.73 sqM); Potassium 4.4 mmol/L (3.5-5.1); Sodium 142 mmol/L (137-145); Total Bilirubin 0.2 mg/dL (0.2-1.3); Total Protein 8.3 g/dL (6.3-8.2)
== END | disposition home or self-care (01) ==
LOC: LABWHC1 16:12
PROVIDERS: ATTEND Internal Medicine Nephrology
DX: D36.9 Benign neoplasm, unspecified site (principal)
CPT/HCPCS: 36415; 80053; 85025

== ENCOUNTER 2019-02-02 09:32 | Inpatient (IN) | payer BC, OTHER ==
[2019-02-02] MEDS ORDERED: CITRIC ACID-SODIUM CITRATE 15 ML CUP PO ONE (10:13)
[2019-02-02] MEDS: LACTATED RINGERS 1,000 ML IV SCH ×4 (10:29→22:08)
[2019-02-02] MEDS ORDERED: ceFAZolin 3 GM in SODIUM CHLORIDE 0.9% 100 ML IVPB ONE (10:30)
[2019-02-02 10:42] VITALS: BMI 41.3
[2019-02-02 10:48] LABS: Anisocytosis Slight; Basophils % (A) 0 %; Eosinophils # (A) 0.1 k/uL (0-0.7); Eosinophils % (A) 1 %; HCT 39.1 % (34.0-46.0); HGB 12.8 gm/dL (11.4-16.0); Lymphocytes # (A) 1.5 k/uL (1.0-4.8); Lymphocytes % (A) 18 %; MCH 26.2 pg (25.0-35.0); MCHC 32.6 g/dL (31.0-37.0); MCV 80.2 fL (80.0-100.0); Mean Platelet Volume 7.1; Monocytes # (A) 0.3 k/uL (0-1.0); Monocytes % (A) 3 %; Neutrophils # (A) 6.6 k/uL (1.3-7.7); Neutrophils % (A) 77 %; Platelet Count 221 k/uL (150-450); Poikilocytosis Slight; RBC 4.87 m/uL (3.80-5.40); RDW 16.3 % (11.5-15.5); WBC 8.6 k/uL (3.8-10.6)
[2019-02-02] MEDS ORDERED: OXYTOCIN 10 UNIT/ML 1 ML VIAL ONE (12:27)
[2019-02-02] MEDS ORDERED: ePHEDrine SULFATE/0.9% NACL/PF 50 MG/5 ML SYRINGE IV ONE (12:27)
[2019-02-02] MEDS ORDERED: MORPHINE SULFATE (PF) 0.3 MG/0.3 ML SYR ONE (12:27)
[2019-02-02] MEDS ORDERED: ONDANSETRON 4 MG/2 ML VIAL ONE (12:27)
[2019-02-02] MEDS ORDERED: NALBUPHINE 10 MG/ML (1 ML AMP) ONE (12:27)
[2019-02-02] MEDS ORDERED: HYDROmorphone 1 MG/ML 1 ML SYRINGE IVP PRN (13:04)
[2019-02-02] MEDS ORDERED: NALOXONE 0.4 MG/ML 1 ML VIAL IV PRN ×2 (13:04→13:22)
[2019-02-02] MEDS ORDERED: ONDANSETRON 4 MG/2 ML VIAL IVP PRN ×2 (13:04→13:22)
[2019-02-02] MEDS ORDERED: NALBUPHINE 10 MG/ML (1 ML AMP) IV PRN (13:04)
--- NOTE | 2019-02-02 13:17 | P.HPOB ---
History of Present Illness H&P Date: 02/02/19 Chief Complaint: IUP at 39 and 0/sevenths weeks history of 2 desires repeat This is a 33-year-old 3 para 1011 at 39-0/7 weeks that presented to labor and delivery for elective repeat section with tubal ligation. Patient has a history of prior and desires repeat with tubal ligation. Patient notes good movement on admission today she denies contractions denies vaginal bleeding or loss of fluid. Patient has been receiving routine care with myself since the first trimester. On blood work she has a blood type of B-, rubella immune, hepatitis B surface antigen negative, RPR nonreactive, group beta strep was negative in addition. Review of Systems Constitutional: Denies chills, Denies fatigue, Denies fever Ears, nose, mouth and throat: Denies headache Cardiovascular: Reports leg edema Respiratory: Denies dyspnea Gastrointestinal: Denies nausea, Denies vomiting Genitourinary: Reports Past Medical History Past Medical History: GERD/Reflux, Hypertension Additional Past Medical History / Comment(s): Hx of gestational diabetes & Hypertension with previous pregnancies, kidney stones. History of Any Multi-Drug Resistant Organisms: None Reported Past Surgical History: Section, Cholecystectomy Additional Past Surgical History / Comment(s): c-sect x 2 , cyst on liver removed with gallbladder. Past Anesthesia/Blood Transfusion Reactions: No Reported Reaction, Postoperative Nausea & Vomiting (PONV) Additional Past Anesthesia/Blood Transfusion Reaction / Comment(s): ponv with 1st (ate prior) Past Psychological History: No Psychological Hx Reported Smoking Status: Never smoker Past Alcohol Use History: None Reported Past Drug Use History: None Reported - Past Family History Mother Family Medical History: No Reported History Medications and Allergies Home Medications Medication Instructions Recorded Confirmed Type Pnv No.95/Ferrous Fum/Folic AC 1 each PO DAILY 01/31/19 02/02/19 History [ Multivitamin Tablet] Allergies Allergy/AdvReac Type Severity Reaction Status Date / Time No Known Allergies Allergy Verified 02/02/19 10:11 Exam Osteopathic Statement: *. No significant issues noted on an osteopathic structural exam other than those noted in the History and Physical/Consult. 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 Cervical exam is deferred Results Result Diagrams: 02/02/19 10:30 Abnormal Lab Results - Last 24 Hours (Table) 02/02/19 Range/Units 10:30 RDW 16.3 H (11.5-15.5) % Assessment and Plan (1) Term Current Visit: Yes Status: Acute Code(s): Z34.90 - ENCNTR FOR SUPRVSN OF NORMAL , UNSP, UNSP TRIMESTER SNOMED Code(s): 19921470 (2) History of Current Visit: No Status: Acute Code(s): Z98.891 - HISTORY OF UTERINE SCAR FROM PREVIOUS SURGERY SNOMED Code(s): 071117341 (3) Obesity Current Visit: No Status: Acute Code(s): E66.9 - OBESITY, UNSPECIFIED SNOMED Code(s): 297497204 Plan: Will admit for planned repeat section with tubal ligation. Patient states she is done with childbearing. Surgery is reviewed all questions are answered informed consent is obtained. Her surgery reviewed including but not limited to infection, bleeding, damage to bladder, bowel, ureteric or other pelvic structures. Patient states understanding. Will proceed to operating room
[2019-02-02] MEDS ORDERED: diphenhydrAMINE 50 MG/ML 1 ML VIAL IVP PRN ×2 (13:22)
[2019-02-02] MEDS ORDERED: ZOLPIDEM 5 MG TAB PO PRN (13:22)
[2019-02-02] MEDS ORDERED: METOCLOPRAMIDE 5 MG/ML 2 ML VIAL IVP PRN (13:22)
[2019-02-02] MEDS ORDERED: ACETAMINOPHEN TAB 325 MG TAB PO PRN (13:22)
[2019-02-02] MEDS ORDERED: diphenhydrAMINE 25 MG CAP PO PRN (13:22)
[2019-02-02] MEDS ORDERED: diphenhydrAMINE 50 MG CAP PO PRN (13:22)
--- NOTE | 2019-02-02 13:22 | P.OP ---
Date of Procedure: 02/02/19 Preoperative Diagnosis: IUP at 39-0/7 weeks, history of desires repeat, family status complete Postoperative Diagnosis: Same Procedure(s) Performed: Repeat section with tubal ligation, Filshie clips Anesthesia: spinal Surgeon: Krysten Mercado Machine Hose Cutter #1: Dhara Ferraro Estimated Blood Loss (ml): 500 IV fluids (ml): 700 Urine output (ml): 300 Pathology: none sent Condition: stable Disposition: PACU Indications for Procedure: History of and desires repeat, family status complete Operative Findings: Significant fascial incision, and subcutaneous scar tissue noted Male delivered at 1248, weight of 6 lbs. 15 oz. with Apgars of 9 and 9 at one and 5 minutes respectively. Description of Procedure: Patient was seen in the labor suite and taken back to the operating suite where spinal anesthesia was performed by the anesthesia Department without difficulty. She was prepped and draped in normal sterile fashion in the dorsal supine position. A Pfannenstiel skin incision was made through the old incision and carried through to the underlying layer of fascia. The fascia was then incised in the midline and the incision was extended laterally in both directions. The superior aspect of the fascial incision was then grasped pam clamps, elevated and underlying rectus muscles dissected off sharply. The inferior aspect of the fascial incision was then grasped pam clamps, elevated and underlying rectus muscles dissected off sharply once again. The rectus muscles were then in the midline and the abdomen was entered. The bladder blade was then placed into the abdomen and the bladder flap was then created using sharp and blunt dissection. A scalpel was then used to create a hysterotomy incision amniotomy was performed and clear fluid was obtained. Infant's head was delivered H medically and handed off to [facility] RN after the cord was doubly clamped and cut. The placenta was then removed manually and the uterus was cleared of all clots and debris. Uterus then delivered from the abdomen. The uterine incision was closed with 0 Vicryl in a running locked fashion from one lateral edge the other lateral edge. Hemostasis was appreciated. The Filshie clip applicator was then used to tie the tubes bilaterally. Hemostasis was appreciated in both clip application was noted to be appropriate. The hysterotomy incision was inspected once again hemostasis was appreciated. The uterus was then returned to the abdomen. The hysterotomy incision was inspected once again hemostasis was appreciated the gutters were cleared of all clots and debris. The fascial incision was then closed with 0 Vicryl in a running fashion from one lateral edge the midline and the other lateral edge the midline. Subcu tissue was then irrigated and hemostasis was appreciated. 3-0 Vicryl is used to close this layer. 4-0 Vicryl was then used to close the skin incision in a subarticular fashion. Suture strips and sterile dressings were applied as needed. Next All counts are correct 2 patient tolerated delivery well and was taken the recovery room awake in stable condition.
[2019-02-02] MEDS ORDERED: OXYTOCIN 20 UNITS/1000 ML NS 1,000 ML IV SCH (13:30)
[2019-02-02] MEDS ORDERED: ACETAMINOPHEN IV (For NPO) 1,000 MG in EMPTY BAG 1 BAG IVPB ONE (14:00)
[2019-02-02] MEDS ORDERED: IBUPROFEN IV 800 MG in SODIUM CHLORIDE 0.9% 250 ML IV ONE (15:00)
[2019-02-02] MEDS ORDERED: Rhogam IMMUNE GLOBULIN 1,500 UNIT/1 ML IM ONE (18:30)
[2019-02-02 21:34] LABS: Anisocytosis Slight; Basophils % (A) 0 %; Eosinophils % (A) 0 %; HGB 11.7 gm/dL (11.4-16.0); Lymphocytes # (A) 0.9 k/uL (1.0-4.8); Lymphocytes % (A) 9 %; MCH 26.3 pg (25.0-35.0); MCHC 32.4 g/dL (31.0-37.0); MCV 81.2 fL (80.0-100.0); Monocytes # (A) 0.2 k/uL (0-1.0); Monocytes % (A) 2 %; Neutrophils # (A) 9.2 k/uL (1.3-7.7); Neutrophils % (A) 88 %; Platelet Count 206 k/uL (150-450); RBC 4.44 m/uL (3.80-5.40); RDW 16.3 % (11.5-15.5); WBC 10.4 k/uL (3.8-10.6)
[2019-02-02 21:48] LABS: ALT 18 U/L (9-52); AST 18 U/L (14-36); African American GFR (CKD) >90 (>60 ml/min/1.73 sqM); Blood Urea Nitrogen 10 mg/dL (7-17); LDH 312 U/L (313-618); Uric Acid 6.9 mg/dL (3.7-7.4)
[2019-02-02 21:58] LABS: Appearance,Urine Clear (Clear); Bilirubin,Urine Negative (Negative); Blood,Urine Large (Negative); Color,Urine Yellow; Glucose,Urine (UA) Negative (Negative); Ketones,Urine 4+ (Negative); Leukocyte Esterase,Urine Small (Negative); Mucus,Urine Moderate /hpf; Nitrite,Urine Negative (Negative); Protein,Urine 1+ (Negative); RBC,Urine >182 /hpf (0-5); Squamous Epithelial Cell,Urine <1 /hpf (0-4); Urobilinogen,Urine <2.0 mg/dL (<2.0); WBC,Urine 142 /hpf (0-5)
[2019-02-02] MEDS: SENNOSIDES-DOCUSATE SODIUM 1 EACH TAB PO SCH (22:08)
[2019-02-03] MEDS: LACTATED RINGERS 1,000 ML IV SCH ×3 (00:39→18:02)
[2019-02-03 07:24] LABS: Anisocytosis Slight; Basophils % (A) 0 %; Eosinophils % (A) 1 %; HGB 10.4 gm/dL (11.4-16.0); Lymphocytes # (A) 1.4 k/uL (1.0-4.8); Lymphocytes % (A) 18 %; MCH 26.9 pg (25.0-35.0); MCHC 33.5 g/dL (31.0-37.0); MCV 80.3 fL (80.0-100.0); Mean Platelet Volume 6.2; Monocytes # (A) 0.3 k/uL (0-1.0); Monocytes % (A) 4 %; Neutrophils % (A) 77 %; Platelet Count 197 k/uL (150-450); RBC 3.86 m/uL (3.80-5.40); RDW 16.1 % (11.5-15.5); WBC 7.7 k/uL (3.8-10.6)
[2019-02-03] MEDS: SENNOSIDES-DOCUSATE SODIUM 1 EACH TAB PO SCH (08:21)
--- NOTE | 2019-02-03 08:59 | P.PN ---
Progress Note - Text Progress Note Date: 02/03/19 Postop day 1 from , spinal with morphine was placed yesterday. Patient is doing well. Pain is well-controlled. Minimal pruritus. There is no weakness in the lower extremities. She's been able to urinate and ambulate. Site is clean and dry. Contact anesthesia with any questions or concerns
[2019-02-03] MEDS ORDERED: CALCIUM CARBONATE 500 MG CHEWABLE PO PRN (09:14)
--- NOTE | 2019-02-03 10:43 | P.PNOBGPC ---
Subjective - Subjective Principal diagnosis: POD 1 RCS with TL Interval history: Patient is doing well postoperatively. she is ambulating without difficulty, awaiting spontaneous void. she states lochia is minimal. pain is well controlled. denies n/v tolerating clear liquids. Patient reports: Reports appetite normal, Reports pain well controlled, Reports ambulating normally [place]: doing well Objective - Vital Signs Latest vital signs: Vital Signs Temp Pulse Resp BP Pulse Ox 02/03/19 08:28 99.0 F 73 16 146/70 02/03/19 06:00 16 02/03/19 04:00 98.3 F 77 14 130/66 97 02/03/19 02:00 14 02/03/19 00:00 98.4 F 77 16 143/87 99 02/02/19 22:00 16 99 02/02/19 21:00 154/93 02/02/19 20:00 98 F 77 16 162/82 99 02/02/19 18:00 18 02/02/19 15:57 16 02/02/19 15:49 95.4 F L 68 18 127/63 95 02/02/19 15:23 94.8 F L 83 18 134/72 97 02/02/19 14:48 95.4 F L 68 18 127/63 97 02/02/19 14:23 104 H 18 143/95 95 02/02/19 14:07 97.9 F 92 18 129/64 96 02/02/19 14:04 18 96 02/02/19 13:53 97.9 F 84 16 131/60 96 02/02/19 13:38 98.1 F 99 18 123/66 97 02/02/19 13:24 97 02/02/19 13:23 97.5 F L 83 16 136/70 97 02/02/19 13:04 18 97 Intake and Output 02/02/19 02/03/19 02/03/19 22:59 06:59 14:59 Intake Total 50 480 Output Total 1650 800 Balance -1650 -750 480 Intake: Oral 50 480 Output: Urine 1650 800 Straight 400 Uretheral (Cueva) 350 Other: Voiding Method Indwelling Catheter # Emeses 1 - Exam Extremities: Present: normal, edema Abdomen: Present: normal appearance, soft Incision: Present: normal, intact Uterus: Present: normal, firm - Labs Labs: Abnormal Lab Results - Last 24 Hours (Table) 02/02/19 02/02/19 02/02/19 Range/Units 10:30 20:43 20:43 Hgb (11.4-16.0) gm/dL Hct (34.0-46.0) % RDW 16.3 H 16.3 H (11.5-15.5) % Neutrophils # 9.2 H (1.3-7.7) k/uL Lymphocytes # 0.9 L (1.0-4.8) k/uL Lactate Dehydrogenase 312 L (313-618) U/L Ur Specific [place] (1.001-1.035) Urine Protein (Negative) Urine Ketones (Negative) Urine Blood (Negative) Ur Leukocyte Esterase (Negative) Urine RBC (0-5) /hpf Urine WBC (0-5) /hpf Urine Mucus (None) /hpf 02/02/19 02/03/19 Range/Units 21:30 06:49 Hgb 10.4 L (11.4-16.0) gm/dL Hct 31.0 L (34.0-46.0) % RDW 16.1 H (11.5-15.5) % Neutrophils # (1.3-7.7) k/uL Lymphocytes # (1.0-4.8) k/uL Lactate Dehydrogenase (313-618) U/L Ur Specific [place] 1.040 H (1.001-1.035) Urine Protein 1+ H (Negative) Urine Ketones 4+ H (Negative) Urine Blood Large H (Negative) Ur Leukocyte Esterase Small H (Negative) Urine RBC >182 H (0-5) /hpf Urine WBC 142 H (0-5) /hpf Urine Mucus Moderate H (None) /hpf Assessment and Plan (1) Term Current Visit: Yes Status: Acute Code(s): Z34.90 - ENCNTR FOR SUPRVSN OF NORMAL , UNSP, UNSP TRIMESTER SNOMED Code(s): 01929843 (2) History of Current Visit: No Status: Acute Code(s): Z98.891 - HISTORY OF UTERINE SCAR FROM PREVIOUS SURGERY SNOMED Code(s): 903655060 (3) Obesity Current Visit: No Status: Acute Code(s): E66.9 - OBESITY, UNSPECIFIED SNOMED Code(s): 083652391 Plan: doing well postoperatively. anticipate d/c home tomorrow
[2019-02-03] MEDS: PRENATAL VIT-IRON-FOLIC ACID 1 EACH CAP PO SCH (10:45)
[2019-02-03] MEDS: IBUPROFEN 600 MG TAB PO PRN (18:01)
[2019-02-04] MEDS: SENNOSIDES-DOCUSATE SODIUM 1 EACH TAB PO SCH ×2 (00:37→07:34)
[2019-02-04] MEDS: IBUPROFEN 600 MG TAB PO PRN ×3 (01:27→14:37)
[2019-02-04 07:36] VITALS: RESP 16; TEMP 98.1
[2019-02-04] MEDS: PRENATAL VIT-IRON-FOLIC ACID 1 EACH CAP PO SCH (10:07)
[2019-02-04] MEDS: LABETALOL 200 MG TAB PO SCH ×2 (10:30→17:54)
[2019-02-04 11:13] LABS: Uric Acid 6.1 mg/dL (3.7-7.4)
--- NOTE | 2019-02-04 11:15 | P.PN ---
Subjective Progress Note Date: 02/04/19 Principal diagnosis: Postoperative day #2, patient requesting discharge home Denies headache, visual changes, or right upper quadrant pain. Minimal Lochia rubra. Pain well controlled. Objective - Vital Signs Vital signs: Vital Signs Temp 98.1 F 02/04/19 07:35 Pulse 72 02/04/19 07:35 Resp 16 02/04/19 07:35 BP 139/85 02/04/19 10:07 Pulse Ox 98 02/03/19 16:00 Intake & Output 02/03/19 02/04/19 02/04/19 18:59 06:59 18:59 Intake Total 480 Output Total 150 Balance 330 Intake: Oral 480 Output: Urine 150 Other: # Voids 2 1 - Constitutional General appearance: Present: morbidly obese - EENT Eyes: Present: PERRLA ENT: Present: hearing grossly normal - Neck Neck: Present: normal ROM Thyroid: bilateral: normal size - Respiratory Respiratory: bilateral: CTA - Cardiovascular Rhythm: regular - Gastrointestinal Gastrointestinal Comment(s): Incision clean and dry, intact, Steri-Strips applied. Uterus firm, midline, symmetric, 18 week size, nontender. - Integumentary Integumentary: Present: normal - Neurologic Neurologic: Present: CNII-XII intact - Musculoskeletal Musculoskeletal: Present: gait normal, strength equal bilaterally - Psychiatric Psychiatric: Present: A&O x's 3, appropriate affect, intact judgment & insight - Labs CBC & Chem 7: 02/03/19 06:49 02/02/19 20:43 Assessment and Plan Assessment: Postoperative day #2. Mild hypertension. Patient requesting discharge home. Plan: I will begin the patient on labetalol 200 mg twice daily, first dose to be given now. We will continue monitoring blood pressure through the day. Check AST, ALTs, uric acid. If all labs within normal limits and blood pressures stabilized, may be discharged home potentially later tonight. Would also consider discharge home tomorrow morning pending progress. Will follow-up with Dr. Mercado in the office in 1 week with blood pressure monitoring to be done at home and documented. Signs and symptoms of preeclampsia reviewed with the patient in detail. Time with Patient: Greater than 30
[2019-02-04] MEDS: HYDROcodone/APAP 5-325MG 1 EACH TAB PO PRN ×2 (11:30→17:54)
[2019-02-04 18:41] VITALS: BP 142/82; PULSE 81
--- NOTE | 2019-02-05 12:22 | DS ---
DISCHARGE SUMMARY DATE OF ADMISSION: 02/02/2019 DATE OF DISCHARGE: 02/04/2019 ADMITTING DIAGNOSES: 1. Thirty-nine week intrauterine . 2. Scheduled repeat section with tubal ligation. This is a 33-year-old female, 3, para 1, 0, 1, 1. EDC 02/09/2019, at 39 weeks gestation. Patient presented for repeat low transverse section and tubal ligation. She has a history of previous and is declining option for . is remarkable for blood type B negative, rubella status immune, group B strep culture is negative. Please see dictated history and physical for details. The patient was admitted and underwent a repeat low transverse section with tubal ligation under the care of Dr. Krysten Mercado. She gave to a live born male with scores of 9 and 9 at 1 and 5 minutes respectively. Infant weighed 6 pounds 15 ounces or 3140 g. Tubal ligation was performed. Please see dictated operative note for details. Blood pressure on admission was 153/72. Blood pressures remained slightly elevated, 150s to 160s over 80s to 90s. For that reason I started her on labetalol 200 mg twice daily. Liver enzymes and preeclamptic labs were all checked and found to be within normal limits. On the second postoperative day the patient was desiring discharge home. She was voiding, ambulating, passing flatus without difficulty. Vital signs were stable and she is afebrile. Incision was clean and dry, intact, Steri-Strips applied. Fundus firm, midline, symmetric, 18 week size. Extremities reveal trace edema. Blood pressure on the labetalol has stabilized into the 130s to 140s over 80s range. Patient denied headache, visual changes, or right upper quadrant pain. Again, she had a strong desire to be discharged home and stated she had good family support. Patient was discharged home in good condition. I have given her a prescription for labetalol 200 mg to be taken twice daily. She will monitor her own blood pressures at home and write them down, she has a sphygmomanometer and is very familiar with its use. She will call with any headache, visual changes, or right upper quadrant pain. She will use [id number] Advil or Aleve, or Motrin as needed for pain. I have asked her to follow up with Dr. Mercado in the office in 1 week and to bring the blood pressure sheet with her for evaluation and potential adjustment of medication. MMODL / IJN: [id number] /
== END 2019-02-04 19:45 | disposition home or self-care (01) | DRG 784 ==
LOC: 4FBP 10:00
PROVIDERS: ADMIT Obstetrics & Gynecology Obstetrics; ATTEND Obstetrics & Gynecology Obstetrics
PROC: 0UL70CZ Occlusion of Bilateral Fallopian Tubes with Extraluminal Device, Open Approach (ICD-10-PCS; 2019-02-02)
PROC: 10D00Z1 Extraction of Products of Conception, Low, Open Approach (ICD-10-PCS; principal; 2019-02-02 12:00)
DX: O34.211 Maternal care for low transverse scar from previous cesarean delivery (principal); O10.92 Unspecified pre-existing hypertension complicating childbirth; O99.214 Obesity complicating childbirth; E66.01 Morbid (severe) obesity due to excess calories; O99.62 Diseases of the digestive system complicating childbirth; K21.9 Gastro-esophageal reflux disease without esophagitis; Z37.0 Single live birth; Z3A.39 39 weeks gestation of pregnancy; Z86.32 Personal history of gestational diabetes; Z87.442 Personal history of urinary calculi; Z90.49 Acquired absence of other specified parts of digestive tract; Z30.2 Encounter for sterilization
CPT/HCPCS: 81001; 82565; 83615; 84450; 84460; 84520; 84550; 85025; 85461; 86850; 86900; 86901